=== PATIENT | male | born 1980 | race Caucasian/White ===

== ENCOUNTER 2023-11-21 21:24 | Emergency (ER) | payer OTHER ==
[2023-11-21 21:44] VITALS: BP 123/79; PULSE 75
[2023-11-21] MEDS: Tetracaine HCl/PF 0.5% 4 ML Bottle EYELF ONE (22:21)
[2023-11-21] MEDS: Erythromycin Base 0.5% Ophth Oint 3.5 GM Tube EYEBOTH ONE (23:24)
== END 2023-11-21 23:26 | disposition home or self-care (01) ==
LOC: JP.ED 21:24
DX: T15.01XA Foreign body in cornea, right eye, initial encounter (principal); W44.8XXA Other foreign body entering into or through a natural orifice, initial encounter
CPT/HCPCS: 99283; A9270